=== PATIENT | female | born 1970 ===

== ENCOUNTER 2017-04-06 09:48 | Emergency (ER) | payer SELFPAY ==
[2017-04-06 09:56] VITALS: BP 100/68; PULSE 73; RESP 18; TEMP 98.4; O2SAT 95
--- NOTE | 2017-04-06 10:47 | C.PDOC ---
History Of Present Illness Patient is a 46 year old female who presents to the ER with a complaint of an itchy rash under her right breast since Friday. Patient notes that she had a burning sensation to the same area a few days prior to rash onset. Patient denies SOB, difficulty swallowing or throat swelling. Time Seen by Provider: 04/06/17 10:34 Chief Complaint (Nursing): Abnormal Skin Integrity History Per: Patient History/Exam Limitations: no limitations Onset/Duration Of Symptoms: Days (Since Friday) Current Symptoms Are (Timing): Still Present Quality Of Symptoms: Itching Recent travel outside of the [place]: No Past Medical History Reviewed: Historical Data, Nursing Documentation, Vital Signs Vital Signs: Last Vital Signs Temp 98.4 F 04/06/17 09:53 Pulse 73 04/06/17 09:53 Resp 18 04/06/17 09:53 BP 100/68 04/06/17 09:53 Pulse Ox 95 04/06/17 11:51 - Medical History PMH: Pneumonia (4 months prior) - [facility] Procedures RESECTION OF GALLBLADDER, PERCUTANEOUS ENDOSCOPIC APPROACH (05/07/16) Family History: States: Unknown Family Hx - Social History Hx Tobacco Use: No Hx Alcohol Use: No Hx Substance Use: No - Immunization History Hx Tetanus Toxoid Vaccination: No Hx Influenza Vaccination: No Hx Pneumococcal Vaccination: No Review Of Systems Except As Marked, All Systems Reviewed And Found Negative. ENT: Negative for: Throat Swelling, Other (Difficulty swallowing) Respiratory: Negative for: Shortness of Breath Skin: Positive for: Rash (Under right breast) Physical Exam - Physical Exam Appears: Well, Non-toxic, No Acute Distress Skin: Normal Color, Warm, Dry, Rash (Vesicular lesions consistent with herpes zoster. ), Other (No cellulitis) Head: Atraumatic, Normacephalic Oral Mucosa: Moist Neck: Normal, Supple Chest: Symmetrical, No Tenderness Cardiovascular: Rhythm Regular, No Murmur Respiratory: Other (No respiratory distress, patient speaking in complete sentences) Neurological/Psych: Oriented x3, Normal Speech, Normal Cognition ED Course And Treatment O2 Sat by Pulse Oximetry: 95 Medical Decision Making Medical Decision Making: Patient advised contact precautions may not have significant improvement due to onset timing of symptoms, patient advised to take OTC pain medication as needed. Disposition Counseled Patient/Family Regarding: Diagnosis, Need For Followup, Rx Given - Disposition Referrals: [facility] [Outside] [facility] [Outside] Disposition: HOME/ ROUTINE Disposition Time: 10:45 Condition: GOOD Prescriptions: Acyclovir [Zovirax] 800 mg PO 5XD #35 tab Instructions: Shingles (ED) Print Language: BAHRAINI - Clinical Impression Clinical Impression: Herpes zoster - Scribe Statement The provider has reviewed the documentation as recorded by the Scribtanisha Naqvi All medical record entries made by the Juanitaibtanisha were at my direction and personally dictated by me. I have reviewed the chart and agree that the record accurately reflects my personal performance of the history, physical exam, medical decision making, and the department course for this patient. I have also personally directed, reviewed, and agree with the discharge instructions and disposition.
== END 2017-04-06 11:27 | disposition home or self-care (01) ==
LOC: C.ER 09:48
DX: B02.9 Zoster without complications (principal)

== ENCOUNTER 2017-04-08 18:06 | Emergency (ER) | payer SELFPAY ==
[2017-04-08 18:24] VITALS: BMI 31.7
[2017-04-08 18:28] VITALS: RESP 18; TEMP 97.8
--- NOTE | 2017-04-08 18:38 | C.PDOC ---
History Of Present Illness 46 yr old female presents to the ER with complaints of increasing rash to the right chest zoster and persistent pain. Patient was seen on 04/06 for similar symptoms. Patient states she has been taking acyclovir as prescribed. Denies fever, chest pain, SOB or headache. VIA TRANS CO INCR RASH R CHEST ZOSTER, PERSIST PAIN. SEEN 04/06 FOR SAME. TAKING ACYCLOVIR PRESCRIBED. NO OTHER ASSOC SX EXAM NAD SKIN ZOSTER R CHEST WALL, NEW LESIONS LATERAL CHEST WALL COMPARED TO INITIAL. NO CELLULITIS Time Seen by Provider: 04/08/17 18:35 Chief Complaint (Nursing): Abnormal Skin Integrity History Per: Patient, Nursing Program Manager History/Exam Limitations: no limitations Onset/Duration Of Symptoms: Days Current Symptoms Are (Timing): Still Present Past Medical History Reviewed: Historical Data, Nursing Documentation, Vital Signs Vital Signs: Last Vital Signs Temp 97.8 F 04/08/17 18:23 Pulse 68 04/08/17 19:00 Resp 18 04/08/17 19:00 BP 100/65 04/08/17 19:00 Pulse Ox 95 04/10/17 07:31 - Medical History PMH: Pneumonia (4 months prior) - [facility] Procedures RESECTION OF GALLBLADDER, PERCUTANEOUS ENDOSCOPIC APPROACH (05/07/16) Family History: States: No Known Family Hx - Social History Hx Tobacco Use: No Hx Alcohol Use: No Hx Substance Use: No - Immunization History Hx Tetanus Toxoid Vaccination: No Hx Influenza Vaccination: No Hx Pneumococcal Vaccination: No Review Of Systems Except As Marked, All Systems Reviewed And Found Negative. Constitutional: Negative for: Fever Cardiovascular: Negative for: Chest Pain Respiratory: Negative for: Shortness of Breath Skin: Positive for: Rash (Zoster rash to the rigth chest ) Neurological: Negative for: Headache Physical Exam - Physical Exam Appears: Well, Non-toxic, No Acute Distress Skin: Warm, Dry, Other (Zoster, right chest wall, new lesions lateral chest wall compared to initial. No cellulitis. ) Head: Atraumatic, Normacephalic Eye(s): bilateral: Normal Inspection, PERRL, EOMI Lips: Normal Appearing, No Swelling Throat: Normal, No Erythema, No Exudate Chest: Symmetrical, No Tenderness Cardiovascular: Rhythm Regular, No Murmur Respiratory: Normal Breath Sounds, No Rales, No Rhonchi Extremity: Normal ROM, No Swelling Neurological/Psych: Oriented x3, Normal Speech, Normal Motor ED Course And Treatment O2 Sat by Pulse Oximetry: 95 Medical Decision Making Medical Decision Making: PLAN: * Percocet PO Disposition Counseled Patient/Family Regarding: Diagnosis, Need For Followup, Rx Given - Disposition Referrals: [facility] Includes [facility] [Outside] [facility] [Outside] Disposition: HOME/ ROUTINE Disposition Time: 18:39 Condition: GOOD Prescriptions: DiphenhydrAMINE [Benadryl] 50 mg PO TID PRN #30 cap PRN Reason: Itching / Pruritus Ibuprofen [Motrin] 600 mg PO Q6 #30 tab oxyCODONE/Acetaminophen [Percocet 5/325 mg Tab] 1 tab PO QID PRN #14 tab PRN Reason: Pain Instructions: Shingles (ED) Print Language: GUINEAN - Clinical Impression Clinical Impression: Neuropathy due to herpes zoster - Scribe Statement The provider has reviewed the documentation as recorded by the Jt Long Provider Attestation: All medical record entries made by the Juanitaibtanisha were at my direction and personally dictated by me. I have reviewed the chart and agree that the record accurately reflects my personal performance of the history, physical exam, medical decision making, and the department course for this patient. I have also personally directed, reviewed, and agree with the discharge instructions and disposition.
[2017-04-08] MEDS ORDERED: Oxycodone/Acetaminophen 5/325 mg Tab PO STA (18:41)
[2017-04-08] MEDS ORDERED: Oxycodone/Acetaminophen 5/325 mg Tab ONE (18:54)
[2017-04-08 19:00] VITALS: BP 100/65; PULSE 68
[2017-04-10 07:30] VITALS: O2SAT 95
== END 2017-04-08 19:03 | disposition home or self-care (01) ==
LOC: C.ER 18:06
DX: B02.23 Postherpetic polyneuropathy (principal)

== ENCOUNTER 2017-04-23 07:01 | Emergency (ER) | payer SELFPAY ==
[2017-04-23 07:02] VITALS: BMI 31.7
[2017-04-23] MEDS ORDERED: Sodium Chloride 0.9% 1,000 ML IV ONE (07:38)
[2017-04-23] MEDS ORDERED: Sodium Chloride 0.9% 1,000 ML ONE (07:51)
--- NOTE | 2017-04-23 07:59 | C.PDOC ---
History Of Present Illness 46 yr old female presents to the ER with complaints of nausea, vomiting, diarrhea and generalized body aches for the past 4 days. Patient denies fever, chest pain, SOB, abdominal pain, headache or numbness. Time Seen by Provider: 04/23/17 07:20 Chief Complaint (Nursing): Flu-like Symptoms History Per: Patient History/Exam Limitations: no limitations Onset/Duration Of Symptoms: Days (4) Current Symptoms Are (Timing): Still Present Sick Contacts (Context): None Recent travel outside of the [place]: No Past Medical History Reviewed: Historical Data, Nursing Documentation, Vital Signs Vital Signs: Last Vital Signs Temp 97.8 F 04/23/17 07:24 Pulse 71 04/23/17 08:12 Resp 16 04/23/17 08:12 BP 101/66 04/23/17 08:12 Pulse Ox 98 04/23/17 10:06 - Medical History PMH: Pneumonia (4 months prior) Surgical History: Cholecystectomy - [facility] Procedures RESECTION OF GALLBLADDER, PERCUTANEOUS ENDOSCOPIC APPROACH (05/07/16) Family History: States: No Known Family Hx - Social History Hx Tobacco Use: No Hx Alcohol Use: No Hx Substance Use: No - Immunization History Hx Tetanus Toxoid Vaccination: No Hx Influenza Vaccination: No Hx Pneumococcal Vaccination: No Review Of Systems Except As Marked, All Systems Reviewed And Found Negative. Constitutional: Positive for: Weakness (Generalized). Negative for: Fever Cardiovascular: Negative for: Chest Pain Respiratory: Negative for: Shortness of Breath Gastrointestinal: Positive for: Nausea, Vomiting, Diarrhea. Negative for: Abdominal Pain Neurological: Negative for: Numbness, Headache Physical Exam - Physical Exam Appears: Well, Non-toxic, No Acute Distress Skin: Warm, Dry, No Rash Head: Atraumatic, Normacephalic Oral Mucosa: Moist Throat: Normal, No Erythema, No Exudate, No Drooling Neck: Normal, Normal ROM, Supple Chest: Symmetrical, No Tenderness Cardiovascular: Rhythm Regular, No Murmur Respiratory: Normal Breath Sounds, No Rales, No Rhonchi, No Wheezing Gastrointestinal/Abdominal: Normal Exam, Soft, No Tenderness, No Guarding, No Rebound Extremity: Normal ROM, No Swelling Neurological/Psych: Oriented x3, Normal Speech, Normal Motor ED Course And Treatment - Laboratory Results Result Diagrams: 04/23/17 07:57 04/23/17 07:57 Lab Interpretation: No Acute Changes Urine POC: Negative O2 Sat by Pulse Oximetry: 98 Progress Note: Treated with IVF NSS and reglan. On re-evaluation continued to C /O nausea. Treated with reglan IV. On re-evaluation abdomen soft, requesting discharge Reassessment Condition: Improved Medical Decision Making Medical Decision Making: PLAN: * CBC * CMP * HCG * Urinalysis * Zofran IVP * Sodium Chloride IV Disposition Counseled Patient/Family Regarding: Studies Performed, Diagnosis - Disposition Referrals: [facility] [Outside] [facility] [Outside] Disposition: HOME/ ROUTINE Disposition Time: 10:10 Condition: STABLE Additional Instructions: retuen to ED if any increase symptoms Prescriptions: Ondansetron ODT [Zofran ODT] 1 odt PO BID PRN #6 odt PRN Reason: Nausea/Vomiting Instructions: Gastroenteritis (ED) Print Language: URDU - POA Present On Arrival: None - Clinical Impression Clinical Impression: Gastroenteritis - PA / EDUCATION COUNSELOR / Resident Statement MD/DO has reviewed & agrees with the documentation as recorded. - Scribe Statement The provider has reviewed the documentation as recorded by the Scribe Lety Long All medical record entries made by the Juanitaibtanisha were at my direction and personally dictated by me. I have reviewed the chart and agree that the record accurately reflects my personal performance of the history, physical exam, medical decision making, and the department course for this patient. I have also personally directed, reviewed, and agree with the discharge instructions and disposition.
[2017-04-23 08:04] LABS: BASO % 0.3 % (0.0-2.0); EOS # 0.1 K/uL (0.0-0.7); EOS % 1.1 % (0.0-4.0); HEMATOCRIT 41.8 % (34.0-47.0); LYMPH # 1.4 K/uL (1.0-4.3); LYMPH % 25.7 % (20.0-40.0); MEAN CELL VOLUME 86.5 fL (81.0-99.0); MEAN CORPUSCULAR HEMOGLOBIN 28.9 pg (27.0-31.0); MEAN CORPUSCULAR HGB CONC 33.4 g/dL (33.0-37.0); MEAN PLATELET VOLUME 9.3 fL (7.2-11.7); MONO # 0.7 K/uL (0.0-0.8); MONO % 13.2 % (0.0-10.0); NRBC % 0.1 % (0.0-2.0); RED CELL DISTRIBUTION WIDTH 12.8 % (11.5-14.5); WHITE BLOOD COUNT 5.3 K/uL (4.8-10.8)
[2017-04-23 08:24] LABS: CHLORIDE 107 mmol/L (98-107); SODIUM 138 mmol/L (132-148)
[2017-04-23 08:25] LABS: POTASSIUM 3.1 mmol/L (3.6-5.2)
[2017-04-23 08:26] LABS: GFR AFRICAN-AMERICAN > 60
[2017-04-23 08:27] LABS: ALB/GLOB RATIO 1.1 (1.0-2.1); ALKALINE PHOSPHATASE 116 U/L (38-126); ALT/SGPT 38 U/L (9-52); AST/SGOT 24 U/L (14-36); BILIRUBIN,TOTAL 0.5 mg/dL (0.2-1.3); BLOOD UREA NITROGEN 7 mg/dL (7-17); CALCIUM 8.5 mg/dl (8.6-10.4); CARBON DIOXIDE 18 mmol/L (22-30); GLUCOSE,RANDOM 100 mg/dL (65-105)
[2017-04-23 08:30] LABS: RBC URINE 3 /hpf (0-3); URINE BILIRUBIN NEGATIVE (NEGATIVE); URINE BLOOD NEGATIVE (NEGATIVE); URINE COLOR Yellow (YELLOW); URINE GLUCOSE (UA) NORMAL (Normal); URINE KETONE NEGATIVE (NEGATIVE); URINE LEUKOCYTE ESTERASE NEG Leu/uL (Negative); URINE PROTEIN NEGATIVE (NEGATIVE); URINE UROBILINOGEN NORMAL mg/dL (0.2-1.0); WBC URINE 1 /hpf (0-5)
[2017-04-23 10:36] VITALS: BP 99/64; PULSE 72; RESP 20; TEMP 97.5; O2SAT 99
== END 2017-04-23 10:37 | disposition home or self-care (01) ==
LOC: C.ER 07:01
DX: K52.9 Noninfective gastroenteritis and colitis, unspecified (principal)
CPT/HCPCS: 80053; 81001; 83690; 84703; 85025; 96361; 96374; 96375; 99285; J2405; J2765; J7040

== ENCOUNTER 2017-10-24 21:49 | Emergency (ER) | payer SELFPAY ==
[2017-10-24 21:50] VITALS: BMI 39.2
[2017-10-24 21:59] VITALS: TEMP 98.2; O2SAT 97
--- NOTE | 2017-10-24 22:43 | C.PDOC ---
History Of Present Illness 47 yo female with 1 month of reproducible chest wall pain with palpation. ?? SOB. No fever and no cough Time Seen by Provider: 10/24/17 22:37 Chief Complaint (Nursing): Chest Pain History Per: Patient Onset/Duration Of Symptoms: Gradual Current Symptoms Are (Timing): Still Present Severity: Mild Pain Scale Rating Of: 3 Quality: Dull Associated Symptoms: Dyspnea Past Medical History Vital Signs: Last Vital Signs Temp 98.2 F 10/24/17 21:57 Pulse 70 10/24/17 22:57 Resp 14 10/24/17 22:57 BP 110/70 10/24/17 22:57 Pulse Ox 97 10/24/17 22:57 - Medical History PMH: Pneumonia Denies: Chronic Kidney Disease Other PMH: none Surgical History: Cholecystectomy - [facility] Procedures RESECTION OF GALLBLADDER, PERCUTANEOUS ENDOSCOPIC APPROACH (05/07/16) Family History: States: No Known Family Hx - Social History Hx Tobacco Use: No Hx Alcohol Use: No Hx Substance Use: No - Immunization History Hx Tetanus Toxoid Vaccination: No Hx Influenza Vaccination: No Hx Pneumococcal Vaccination: No Review Of Systems Constitutional: Negative for: Fever Eyes: Negative for: Pain Cardiovascular: Positive for: Chest Pain. Negative for: Palpitations, Edema Respiratory: Positive for: Shortness of Breath, SOB with Excertion. Negative for: Cough Gastrointestinal: Negative for: Nausea, Vomiting Musculoskeletal: Positive for: Back Pain. Negative for: Neck Pain Psych: Negative for: Anxiety Physical Exam - Physical Exam Appears: Well, Non-toxic Skin: Normal Color, No Cyanotic Head: Atraumatic, Normacephalic Eye(s): bilateral: Normal Inspection, PERRL, EOMI Neck: Normal, Normal ROM Lymphatic: Normal Exam Chest: Symmetrical, No Ecchymosis, No Subcutaneous Emphysema Cardiovascular: Rhythm Regular, Rhythm Irregular Respiratory: Normal Breath Sounds, No Rales, No Rhonchi Gastrointestinal/Abdominal: Normal Exam, No Tenderness Extremity: Normal ROM, No Tenderness ED Course And Treatment ECG: Interpreted By Me ECG Rhythm: Sinus Rhythm ECG Interpretation: Normal O2 Sat by Pulse Oximetry: 97 Disposition - Disposition Disposition: HOME/ ROUTINE Disposition Time: 22:45 Condition: STABLE Prescriptions: Naproxen [Naprosyn] 500 mg PO BID PRN #14 tablet PRN Reason: Pain, Moderate (4-7) Instructions: Chest Wall Pain (ED) Forms: Gen Discharge Inst Yoruba - Clinical Impression Clinical Impression: Chest wall pain
[2017-10-24 22:57] VITALS: BP 110/70; PULSE 70; RESP 14
== END 2017-10-24 22:57 | disposition home or self-care (01) ==
LOC: C.ER 21:49
DX: R07.89 Other chest pain (principal)

== ENCOUNTER 2018-04-20 14:16 | Emergency (ER) | payer OTHER ==
[2018-04-20 14:17] VITALS: BMI 35.7
[2018-04-20 14:26] VITALS: BP 117/79; PULSE 73; RESP 20; TEMP 98; O2SAT 96
--- NOTE | 2018-04-20 15:53 | RAD ---
PROCEDURE: Right Foot Radiographs. HISTORY: R plantar heel pain x 2 weeks, no injury COMPARISON: None. FINDINGS: BONES: Normal. No fracture. JOINTS: Normal. SOFT TISSUES: Normal. OTHER FINDINGS: None. IMPRESSION: Normal right foot radiographs.
--- NOTE | 2018-04-20 16:02 | C.PDOC ---
History Of Present Illness 47yo female comes to ER for evaluation of right plantar heel pain. She states she stands all day for her job, which might have caused the injury. She denies any trauma, injury, weakness, numbness or tingling. Time Seen by Provider: 04/20/18 15:15 Chief Complaint (Nursing): Lower Extremity Problem/Injury History Per: Patient History/Exam Limitations: no limitations Onset/Duration Of Symptoms: Days Current Symptoms Are (Timing): Still Present Additional History Per: Patient Past Medical History Reviewed: Historical Data, Nursing Documentation, Vital Signs Vital Signs: Last Vital Signs Temp 98 F 04/20/18 14:23 Pulse 73 04/20/18 14:23 Resp 20 04/20/18 14:23 BP 117/79 04/20/18 14:23 Pulse Ox 96 04/20/18 18:26 - Medical History PMH: No Chronic Diseases, Pneumonia Denies: Chronic Kidney Disease Surgical History: Cholecystectomy - [facility] Procedures RESECTION OF GALLBLADDER, PERCUTANEOUS ENDOSCOPIC APPROACH (05/07/16) Family History: States: No Known Family Hx - Social History Hx Tobacco Use: No Hx Alcohol Use: No Hx Substance Use: No - Immunization History Hx Tetanus Toxoid Vaccination: No Hx Influenza Vaccination: No Hx Pneumococcal Vaccination: No Review Of Systems Except As Marked, All Systems Reviewed And Found Negative. Constitutional: Positive for: Other (weight gain due to poor diet) Musculoskeletal: Positive for: Foot Pain (right plantar heel ) Neurological: Negative for: Weakness, Numbness Physical Exam - Physical Exam Appears: Non-toxic, No Acute Distress Skin: Normal Color, Warm, Dry Head: Atraumatic, Normacephalic Eye(s): bilateral: Normal Inspection, EOMI Nose: Normal Oral Mucosa: Moist Neck: Normal ROM, Supple Chest: Symmetrical Cardiovascular: Rhythm Regular Respiratory: Normal Breath Sounds Extremity: Normal ROM, Tenderness (mild tenderness right plantar heel surface), No Pedal Edema, No Calf Tenderness, No Deformity, No Swelling Neurological/Psych: Oriented x3 ED Course And Treatment O2 Sat by Pulse Oximetry: 96 (RA) Pulse Ox Interpretation: Normal - Other Rad R foot X-Ray: Interpreted by Me (no fx/disloc/heel spurs) Progress Note: ice pack/motrin PO Reevaluation Time: 15:53 Reassessment Condition: Improved Medical Decision Making Medical Decision Making: heel spurs vs plantar fasciitis nsaids, weight loss POdiatry f/u. Disposition Doctor Will See Patient In The: Office Counseled Patient/Family Regarding: Studies Performed, Diagnosis - Disposition Referrals: Edmundo Su DPM [Staff Provider] - Noé Parada DPM [Staff Provider] - Disposition: HOME/ ROUTINE Disposition Time: 16:02 Condition: GOOD Additional Instructions: ibuprofeno 400-600 mg cada 6 horas tim necessario bolsa/botella de hielo 1/2 hora por hora nada caliente [place] Sigue con POdiatria- llama para hacer stacy Placas hoy normal. Instructions: Heel Pain (Caused by Plantar Fasciitis) Forms: [employer] (Qatari) Print Language: CHADIAN - Clinical Impression Clinical Impression: Plantar fasciitis - Scribe Statement The provider has reviewed the documentation as recorded by the Scribe (Ginna Scott) Provider Attestation: All medical record entries made by the Scribe were at my direction and personally dictated by me. I have reviewed the chart and agree that the record accurately reflects my personal performance of the history, physical exam, medical decision making, and the department course for this patient. I have also personally directed, reviewed, and agree with the discharge instructions and disposition.
== END 2018-04-20 16:27 | disposition home or self-care (01) ==
LOC: C.ER 14:16
DX: M72.2 Plantar fascial fibromatosis (principal)